=== PATIENT | male | born 1995 | race Asian ===

== ENCOUNTER 2016-07-25 11:42 | Emergency (ER) | payer SELFPAY ==
[~2016-07-25] VITALS: Ht 167.6 cm; Wt 81.6 kg
[2016-07-25 11:45] VITALS: BP_SYST 155
[2016-07-25 12:26] VITALS: BP_SYST 140
== END 2016-07-25 12:26 | disposition home or self-care (01) ==
LOC: SED 11:42
DX: B00.9 Herpesviral infection, unspecified (principal); L73.9 Follicular disorder, unspecified; F17.200 Nicotine dependence, unspecified, uncomplicated
CPT/HCPCS: 36415; 86695; 86696; 87252; 99284